=== PATIENT | female | born 1955 | race African-American/Black ===

== ENCOUNTER 2019-08-27 12:21 | Inpatient (IN) | payer MEDICARE, OTHER ==
[~2019-08-27] VITALS: Ht 177.8 cm; Wt 113.9 kg
[~2019-08-27 12:21] MED LIST: LOSA25TA3
[2019-08-27] MEDS ORDERED: FUROSEMIDE 40MG/4ML VIAL IV ONE (13:00)
[2019-08-27] MEDS ORDERED: HYDRALAZINE 20MG/ML VIAL IV ONE (13:00)
[2019-08-27] MEDS ORDERED: ASPIRIN 81MG TABLET PO ONE (13:00)
[2019-08-27] MEDS ORDERED: NITROGLYCERIN OINT 1GM/INCH UDPKT TD ONE (13:00)
[2019-08-27 14:29] LABS: BASOPHILS % 0.4 % (0.0-2.0); EOSINOPHILS % 0.6 % (0.0-5.0); HEMATOCRIT. 35.7 % (36.0-48.0); HEMOGLOBIN. 11.5 g/dL (12.0-16.0); LYMPHOCYTES % 7.8 % (20.0-50.0); MEAN CORPUSCULAR HEMOGLOBIN 26.7 pg (28.0-32.0); MEAN CORPUSCULAR VOLUME 82.9 fL (81.0-99.0); MEAN PLATELET VOLUME 8.1 fl (7.4-10.4); MONOCYTES % 5.2 % (2.0-8.0); PLATELET 210 x1000/uL (130-400); RED CELL DISTRIBUTION WIDTH 14.7 % (11.6-14.6)
[2019-08-27 14:37] LABS: CHLORIDE 105 mEq/L (98-107)
[2019-08-27 14:40] LABS: D-DIMER 0.87 mg/L FEU (<0.50); INR 1.1; PARTIAL THROMBOPLASTIN TIME 33.5 sec (23.4-31.0)
[2019-08-27] MEDS ORDERED: CLONIDINE 0.2MG TABLET PO ONE (15:30)
[2019-08-27] MEDS ORDERED: ENOXAPARIN 100MG/ML SYR SUBCUT ONE (16:15)
[2019-08-27] MEDS ORDERED: ACETAMINOPHEN 325MG TABLET PO PRN (17:15)
[2019-08-27] MEDS ORDERED: HYDROCODONE/ACETAMINOPHEN 10/325MG TABLET PO PRN (17:15)
[2019-08-27] MEDS ORDERED: ACETAMINOPHEN 650MG/20.3ML UDC GT PRN (17:15)
[2019-08-27] MEDS ORDERED: NA PHOS,M-B/NA PHOS,DI-BA ENEMA 118ML PR PRN (17:15)
[2019-08-27] MEDS ORDERED: DIPHENHYDRAMINE 50MG/ML VIAL IV PRN (17:15)
[2019-08-27] MEDS ORDERED: DOCUSATE SODIUM 100MG CAPSULE PO PRN (17:15)
[2019-08-27] MEDS ORDERED: IPRATROPIUM/ALBUTEROL 0.5-3(2.5)MG/3ML NEB HHN PRN (17:15)
[2019-08-27] MEDS ORDERED: HYDROCODONE/ACETAMINOPHEN 5/325MG TABLET PO PRN (17:15)
[2019-08-27] MEDS ORDERED: MAGNESIUM/ALUMINUM HYDROXIDE/SIMETHICONE 30ML UDC PO PRN (17:15)
[2019-08-27] MEDS ORDERED: ACETAMINOPHEN 650MG SUPP PR PRN (17:15)
[2019-08-27] MEDS ORDERED: ENOXAPARIN 40MG/0.4ML SYR SUBCUT SCH (17:15)
[2019-08-27] MEDS ORDERED: GUAIFENESIN 200MG/10ML SUGAR FREE UDC PO PRN (17:15)
[2019-08-27] MEDS ORDERED: ONDANSETRON HCL 4MG/2ML INJ IV PRN (17:15)
[2019-08-27] MEDS ORDERED: IOHEXOL-350 100 ML BOTTLE ONE (17:30)
[2019-08-27] MEDS: CLONIDINE 0.1MG TABLET PO PRN (23:40)
[2019-08-27 23:47] LABS: CREATINE KINASE MB FRACTION 3.2 ng/mL (0.5-3.6)
[2019-08-28] VITALS (7 sets, daily range): BP systolic 132–199; BP diastolic 67–94
[2019-08-28] MEDS: LISINOPRIL 20MG TABLET PO SCH ×2 (00:35→09:31)
[2019-08-28] MEDS: AMLODIPINE 10MG TABLET PO SCH ×2 (00:36→09:31)
[2019-08-28] MEDS: SODIUM CHLORIDE 0.9% INJ 3ML FLUSH IVF SCH ×3 (05:55→21:41)
[2019-08-28 06:23] LABS: BASOPHILS % 0.7 % (0.0-2.0); EOSINOPHILS % 1.7 % (0.0-5.0); HEMATOCRIT. 31.8 % (36.0-48.0); HEMOGLOBIN. 10.2 g/dL (12.0-16.0); LYMPHOCYTES % 16.7 % (20.0-50.0); MEAN CORPUSCULAR HEMOGLOBIN 26.3 pg (28.0-32.0); MEAN CORPUSCULAR VOLUME 81.9 fL (81.0-99.0); MONOCYTES % 10.7 % (2.0-8.0); NEUTROPHILS % 70.2 % (40.0-76.0); PLATELET 206 x1000/uL (130-400); RED BLOOD CELL COUNT 3.89 mill/uL (4.2-5.4)
[2019-08-28 07:17] LABS: CHLORIDE 104 mEq/L (98-107)
[2019-08-28 07:32] LABS: LDL CHOLESTEROL 59 mg/dL (5-100)
[2019-08-28 07:33] LABS: CREATINE KINASE 79 IU/L (26-192); HDL CHOLESTEROL 44 mg/dL (40-59)
[2019-08-28 07:38] LABS: CREATINE KINASE MB FRACTION 2.3 ng/mL (0.5-3.6)
[2019-08-28] MEDS: FUROSEMIDE 40MG/4ML VIAL IV SCH ×2 (09:30→21:41)
[2019-08-28] MEDS: ENOXAPARIN 30MG/0.3ML SYR SUBCUT SCH ×2 (09:30→21:41)
[2019-08-29] VITALS: BP 157/81
[2019-08-29 04:00] VITALS: BP 148/80
[2019-08-29] MEDS: SODIUM CHLORIDE 0.9% INJ 3ML FLUSH IVF SCH (05:44)
[2019-08-29 08:00] VITALS: BP 153/73
[2019-08-29] MEDS: FUROSEMIDE 40MG/4ML VIAL IV SCH (09:06)
[2019-08-29] MEDS: ENOXAPARIN 30MG/0.3ML SYR SUBCUT SCH (09:06)
[2019-08-29] MEDS: LISINOPRIL 20MG TABLET PO SCH (09:06)
[2019-08-29] MEDS: AMLODIPINE 10MG TABLET PO SCH (09:06)
[2019-08-29 12:00] VITALS: BP 164/80
[2019-08-29] MEDS ORDERED: AMLO10TA80 PO (12:18)
[2019-08-29] MEDS ORDERED: FURO-151 MT (12:18)
[2019-08-29] MEDS ORDERED: LISI-604 PO (12:18)
[2019-08-29] MEDS: CLONIDINE 0.1MG TABLET PO PRN (14:38)
[2019-08-29 16:00] VITALS: BP 151/74
[2019-08-29 16:15] VITALS: BP 151/74
== END 2019-08-29 17:37 | disposition home or self-care (01) | DRG 291 ==
LOC: ER 12:21 → 7WST 16:07 → ENRESERV 23:09
PROVIDERS: ADMIT Family Medicine; ATTEND Family Medicine
DX: I11.0 Hypertensive heart disease with heart failure (principal); I50.31 Acute diastolic (congestive) heart failure; I16.1 Hypertensive emergency; R73.9 Hyperglycemia, unspecified; E66.01 Morbid (severe) obesity due to excess calories; I35.0 Nonrheumatic aortic (valve) stenosis; E78.00 Pure hypercholesterolemia, unspecified; E78.5 Hyperlipidemia, unspecified; Z91.19 Patient's noncompliance with other medical treatment and regimen; Z68.36 Body mass index [BMI] 36.0-36.9, adult; Z91.11 Patient's noncompliance with dietary regimen
CPT/HCPCS: 36415; 71045; 71275; 80061; 82550; 82553; 83880; 84484; 85379; 93005; 93306; 93970; 99285; J0360; J1650; J1940; Q9967

== ENCOUNTER 2019-10-25 10:10 | Inpatient (IN) | payer MEDICARE ==
[~2019-10-25] VITALS: Ht 165.1 cm; Wt 116.6 kg
[~2019-10-25 10:10] MED LIST changes: +AMLO10TA80 PO; +FURO-151 MT; +LISI-604 PO
[2019-10-25] MEDS ORDERED: FUROSEMIDE 40MG/4ML VIAL IV ONE (11:30)
[2019-10-25] MEDS ORDERED: NITROGLYCERIN OINT 1GM/INCH UDPKT TD ONE (11:30)
[2019-10-25 12:04] LABS: CHLORIDE 109 mEq/L (98-107)
[2019-10-25 12:06] LABS: BASOPHILS % 0.5 % (0.0-2.0); HEMATOCRIT. 28.8 % (36.0-48.0); HEMOGLOBIN. 9.3 g/dL (12.0-16.0); LYMPHOCYTES % 19.4 % (20.0-50.0); MEAN CORPUSCULAR HEMOGLOBIN 26.2 pg (28.0-32.0); MEAN CORPUSCULAR VOLUME 81.1 fL (81.0-99.0); MEAN PLATELET VOLUME 8.1 fl (7.4-10.4); MONOCYTES % 9.7 % (2.0-8.0); NEUTROPHILS % 68.4 % (40.0-76.0); PLATELET 194 x1000/uL (130-400); RED BLOOD CELL COUNT 3.55 mill/uL (4.2-5.4); RED CELL DISTRIBUTION WIDTH 14.9 % (11.6-14.6)
[2019-10-25 12:36] LABS: D-DIMER 1.59 mg/L FEU (<0.50); INR 1.2; PROTHROMBIN TIME 12.1 sec (9.6-11.0)
[2019-10-25] MEDS ORDERED: LABETALOL 5MG/ML SYR 20 MG/4 ML SYRINGE IV ONE (14:15)
[2019-10-25] MEDS ORDERED: AMIODARONE HCL 900 MG in DEXT 5% WATER 482 ML IV SCH ×4 (15:00)
[2019-10-25 16:00] VITALS: BP 147/94
[2019-10-25 16:05] VITALS: BP 147/94
[2019-10-25] MEDS ORDERED: LISINOPRIL 20MG TABLET PO SCH (18:00)
[2019-10-25 20:00] VITALS: BP 143/76
[2019-10-25] MEDS ORDERED: FUROSEMIDE 40MG/4ML VIAL IVP SCH (21:00)
[2019-10-25] MEDS ORDERED: IOHEXOL-350 100 ML BOTTLE ONE (22:39)
[2019-10-25] MEDS ORDERED: POTASSIUM CHLORIDE 20MEQ TABLET SR PO NR (22:45)
[2019-10-25] MEDS ORDERED: DIPHENHYDRAMINE 50MG/ML VIAL IV PRN (22:45)
[2019-10-25] MEDS ORDERED: ONDANSETRON HCL 4MG/2ML INJ IV PRN (22:45)
[2019-10-25] MEDS ORDERED: GUAIFENESIN 200MG/10ML SUGAR FREE UDC PO PRN (22:45)
[2019-10-25] MEDS ORDERED: MAGNESIUM 4 G PREMIX 100 ML IV NR (23:59)
[2019-10-26] VITALS: BP 144/95
[2019-10-26 00:06] LABS: *AMPHETAMINES SCREEN URINE NEGATIVE (NEGATIVE); *BARBITURATES SCREEN URINE NEGATIVE (NEGATIVE)
[2019-10-26 00:07] LABS: *BENZODIAZEPINES SCREEN URINE NEGATIVE (NEGATIVE); *COCAINE SCREEN URINE NEGATIVE (NEGATIVE); CANNABINOID URINE SCREEN NEGATIVE (NEGATIVE); METHADONE URINE SCREEN NEGATIVE (NEGATIVE); OPIATES URINE SCREEN NEGATIVE (NEGATIVE); PHENCYCLIDINE URINE SCREEN NEGATIVE (NEGATIVE)
[2019-10-26] MEDS ORDERED: PROPRANOLOL HCL 20MG TABLET PO SCH (02:00)
[2019-10-26] MEDS: LISINOPRIL 20MG TABLET PO SCH ×3 (02:14→22:08)
[2019-10-26] MEDS: PROPRANOLOL HCL 10MG TABLET PO SCH ×3 (03:12→18:22)
[2019-10-26 04:00] VITALS: BP 118/70
[2019-10-26] MEDS: SODIUM CHLORIDE 0.9% INJ 3ML FLUSH IVF SCH ×3 (06:34→22:09)
[2019-10-26 07:16] LABS: BASOPHILS % 0.5 % (0.0-2.0); EOSINOPHILS % 2.9 % (0.0-5.0); HEMATOCRIT. 27.9 % (36.0-48.0); HEMOGLOBIN. 9.1 g/dL (12.0-16.0); LYMPHOCYTES % 20.1 % (20.0-50.0); MEAN CORPUSCULAR HEMOGLOBIN 26.2 pg (28.0-32.0); MEAN CORPUSCULAR VOLUME 80.4 fL (81.0-99.0); MEAN PLATELET VOLUME 8.2 fl (7.4-10.4); MONOCYTES % 14.4 % (2.0-8.0); NEUTROPHILS % 62.1 % (40.0-76.0); PLATELET 192 x1000/uL (130-400); RED BLOOD CELL COUNT 3.47 mill/uL (4.2-5.4); RED CELL DISTRIBUTION WIDTH 15.4 % (11.6-14.6)
[2019-10-26 07:55] VITALS: BP 129/91
[2019-10-26 08:13] LABS: CHLORIDE 105 mEq/L (98-107)
[2019-10-26] MEDS: FAMOTIDINE 20MG TABLET PO SCH ×2 (08:16→21:42)
[2019-10-26] MEDS: ACETAMINOPHEN 325MG TABLET PO PRN ×2 (08:16→21:42)
[2019-10-26 08:42] LABS: PHOSPHORUS 4.7 mg/dL (2.5-4.9)
[2019-10-26] MEDS ORDERED: METHIMAZOLE 5MG TABLET PO SCH (09:00)
[2019-10-26] MEDS ORDERED: AMLODIPINE 10MG TABLET PO SCH (09:00)
[2019-10-26 12:00] VITALS: BP 113/81
[2019-10-26] MEDS: ENOXAPARIN 120MG/0.8ML SYR SUBCUT SCH ×2 (14:20→22:08)
[2019-10-26 16:00] VITALS: BP 105/78
[2019-10-26 17:03] LABS: CREATINE KINASE 34 IU/L (26-192)
[2019-10-26 17:07] LABS: T4 FREE 1.93 ng/dL (0.76-1.46)
[2019-10-26 17:08] LABS: CREATINE KINASE MB FRACTION < 1.0 ng/mL (0.5-3.6)
[2019-10-26] MEDS: METHIMAZOLE 10MG TABLET PO SCH (18:07)
[2019-10-26 20:00] VITALS: BP 116/80
[2019-10-26 23:45] LABS: CREATINE KINASE 33 IU/L (26-192)
[2019-10-26 23:47] LABS: CREATINE KINASE MB FRACTION < 1.0 ng/mL (0.5-3.6)
[2019-10-27] VITALS: BP 127/89
[2019-10-27] MEDS: PROPRANOLOL HCL 10MG TABLET PO SCH ×3 (02:48→17:31)
[2019-10-27 04:00] VITALS: BP 128/79
[2019-10-27 08:00] VITALS: BP 120/81
[2019-10-27 09:48] LABS: CREATINE KINASE 29 IU/L (26-192)
[2019-10-27 09:49] LABS: CREATINE KINASE MB FRACTION < 1.0 ng/mL (0.5-3.6)
[2019-10-27] MEDS: LISINOPRIL 20MG TABLET PO SCH ×2 (09:57→21:15)
[2019-10-27] MEDS: FAMOTIDINE 20MG TABLET PO SCH ×2 (09:57→21:15)
[2019-10-27] MEDS: METHIMAZOLE 10MG TABLET PO SCH ×2 (09:57→17:32)
[2019-10-27] MEDS: ENOXAPARIN 120MG/0.8ML SYR SUBCUT SCH ×2 (10:01→21:16)
[2019-10-27 12:00] VITALS: BP 125/77
[2019-10-27 16:16] VITALS: BP 133/65
[2019-10-27 20:00] VITALS: BP 115/66
[2019-10-27] MEDS: SODIUM CHLORIDE 0.9% INJ 3ML FLUSH IVF SCH (21:16)
[2019-10-28] VITALS: BP 117/76
[2019-10-28] MEDS: PROPRANOLOL HCL 10MG TABLET PO SCH ×2 (00:15→09:30)
[2019-10-28 04:00] VITALS: BP 104/82
[2019-10-28] MEDS: SODIUM CHLORIDE 0.9% INJ 3ML FLUSH IVF SCH (05:51)
[2019-10-28 08:00] VITALS: BP 124/82
[2019-10-28] MEDS: ENOXAPARIN 120MG/0.8ML SYR SUBCUT SCH (09:29)
[2019-10-28] MEDS: LISINOPRIL 20MG TABLET PO SCH (09:30)
[2019-10-28] MEDS: FAMOTIDINE 20MG TABLET PO SCH (09:30)
[2019-10-28] MEDS: METHIMAZOLE 10MG TABLET PO SCH (09:30)
[2019-10-28 12:06] VITALS: BP 117/69
[2019-10-28 12:20] VITALS: BP 117/69
== END 2019-10-28 13:05 | disposition home or self-care (01) | DRG 308 ==
LOC: ER 10:10 → 7WST 13:01 → EDBEDREQ 13:06 → ENRESERV 13:30
PROVIDERS: ADMIT Internal Medicine; ATTEND Internal Medicine
DX: I47.1 Supraventricular tachycardia (principal); I50.33 Acute on chronic diastolic (congestive) heart failure; Z68.41 Body mass index [BMI] 40.0-44.9, adult; I42.9 Cardiomyopathy, unspecified; I11.0 Hypertensive heart disease with heart failure; I48.91 Unspecified atrial fibrillation; E66.01 Morbid (severe) obesity due to excess calories; E78.5 Hyperlipidemia, unspecified; E87.6 Hypokalemia; E05.90 Thyrotoxicosis, unspecified without thyrotoxic crisis or storm; D64.9 Anemia, unspecified; I07.1 Rheumatic tricuspid insufficiency; Z79.01 Long term (current) use of anticoagulants; Z79.899 Other long term (current) drug therapy; Z85.41 Personal history of malignant neoplasm of cervix uteri; Z82.49 Family history of ischemic heart disease and other diseases of the circulatory system; Z83.3 Family history of diabetes mellitus; Z90.49 Acquired absence of other specified parts of digestive tract
CPT/HCPCS: 36415; 71045; 71275; 80048; 80053; 80061; 80305; 82550; 82553; 83036; 83605; 83735; 83880; 84100; 84439; 84443; 84481; 84484; 85025; 85379; 93005; 93306; 93970; 96365; 96372; 96375; 96376; 99291; J0282; J1650; J1940; J3475; J3490; J7060; Q9967

== ENCOUNTER 2019-11-16 09:33 | Inpatient (IN) | payer MEDICARE ==
[~2019-11-16] VITALS: Ht 165.1 cm; Wt 112.0 kg
[~2019-11-16 09:33] MED LIST changes: -LOSA25TA3
[2019-11-16] MEDS ORDERED: NITROGLYCERIN 0.4MG TABLET SL SL PRN (10:15)
[2019-11-16] MEDS ORDERED: FUROSEMIDE 40MG/4ML VIAL IV ONE (10:15)
[2019-11-16] MEDS ORDERED: DILTIAZEM HCL 5MG/ML 5ML VIAL IV ONE (10:15)
[2019-11-16] MEDS ORDERED: ASPIRIN 81MG TABLET PO ONE (10:15)
[2019-11-16 10:40] LABS: BASOPHILS % 0.8 % (0.0-2.0); EOSINOPHILS % 2.5 % (0.0-5.0); HEMATOCRIT. 30.3 % (36.0-48.0); HEMOGLOBIN. 10.4 g/dL (12.0-16.0); LYMPHOCYTES % 20.9 % (20.0-50.0); MEAN CORPUSCULAR HEMOGLOBIN 27.8 pg (28.0-32.0); MEAN CORPUSCULAR VOLUME 81.1 fL (81.0-99.0); MEAN PLATELET VOLUME 7.9 fl (7.4-10.4); MONOCYTES % 7.6 % (2.0-8.0); NEUTROPHILS % 68.2 % (40.0-76.0); PLATELET 240 x1000/uL (130-400); RED BLOOD CELL COUNT 3.74 mill/uL (4.2-5.4); RED CELL DISTRIBUTION WIDTH 17.1 % (11.6-14.6)
[2019-11-16 10:44] LABS: CHLORIDE 107 mEq/L (98-107)
[2019-11-16] MEDS ORDERED: ENOXAPARIN 120MG/0.8ML SYR SUBCUT ONE (12:00)
[2019-11-16] MEDS ORDERED: DILTIAZEM HCL 120MG CAPSULE CD 24HR PO ONE (12:00)
[2019-11-16] MEDS ORDERED: DIPHENHYDRAMINE 50MG/ML VIAL IV PRN (14:00)
[2019-11-16] MEDS ORDERED: GUAIFENESIN 200MG/10ML SUGAR FREE UDC PO PRN (14:00)
[2019-11-16] MEDS ORDERED: MAGNESIUM/ALUMINUM HYDROXIDE/SIMETHICONE 30ML UDC PO PRN (14:00)
[2019-11-16] MEDS ORDERED: ZOLPIDEM TARTRATE 5MG TABLET PO PRN (14:00)
[2019-11-16] MEDS ORDERED: ACETAMINOPHEN 325MG TABLET PO PRN (14:00)
[2019-11-16] MEDS ORDERED: FUROSEMIDE 40MG/4ML VIAL IVP SCH (14:00)
[2019-11-16] MEDS ORDERED: CLONIDINE 0.1MG TABLET PO PRN (14:00)
[2019-11-16] MEDS ORDERED: ONDANSETRON HCL 4MG/2ML INJ IV PRN (14:00)
[2019-11-16] MEDS: SODIUM CHLORIDE 0.9% INJ 3ML FLUSH IVF SCH (14:18)
[2019-11-16 15:04] LABS: T4 FREE 1.11 ng/dL (0.76-1.46)
[2019-11-16] MEDS ORDERED: APIXABAN 5 MG TABLET PO SCH (17:00)
[2019-11-16] MEDS ORDERED: METHIMAZOLE 5MG TABLET PO NR (18:15)
[2019-11-16] MEDS ORDERED: METHIMAZOLE 10MG TABLET PO NR (18:15)
[2019-11-16] MEDS ORDERED: LISINOPRIL 20MG TABLET PO NR (22:56)
[2019-11-16] MEDS ORDERED: METOPROLOL TARTRATE 50MG TABLET PO NR (22:57)
[2019-11-17] MEDS: SODIUM CHLORIDE 0.9% INJ 3ML FLUSH IVF SCH ×4 (00:21→20:56)
[2019-11-17 04:53] LABS: HEMATOCRIT 29.2 % (36.0-48.0); HEMOGLOBIN 9.5 g/dL (12.0-16.0); MEAN CORPUSCULAR HEMOGLOBIN 26.6 pg (28.0-32.0); MEAN CORPUSCULAR VOLUME 81.5 fL (81.0-99.0); PLATELET 180 x1000/uL (130-400); RED BLOOD CELL COUNT 3.58 mill/uL (4.2-5.4); RED CELL DISTRIBUTION WIDTH 17.1 % (11.6-14.6)
[2019-11-17 04:55] LABS: CHLORIDE 107 mEq/L (98-107)
[2019-11-17 05:40] VITALS: BP 125/83
[2019-11-17 05:42] VITALS: BP 125/83
[2019-11-17] MEDS ORDERED: POTA20LI52 PO (07:33)
[2019-11-17] MEDS ORDERED: PROP40TA7 PO (07:35)
[2019-11-17] MEDS ORDERED: METH5TAB68 PO (07:35)
[2019-11-17 08:00] VITALS: BP 145/90
[2019-11-17] MEDS ORDERED: APIXABAN 5 MG TABLET PO SCH (09:00)
[2019-11-17] MEDS ORDERED: LISINOPRIL 20MG TABLET PO SCH (09:00)
[2019-11-17] MEDS ORDERED: METOPROLOL TARTRATE 50MG TABLET PO SCH (09:00)
[2019-11-17] MEDS: FUROSEMIDE 40MG/4ML VIAL IVP SCH ×2 (09:13→20:55)
[2019-11-17] MEDS: METHIMAZOLE 5MG TABLET PO SCH ×2 (09:14→17:00)
[2019-11-17] MEDS ORDERED: DILTIAZEM HCL 60MG TABLET PO SCH (10:00)
[2019-11-17 12:00] VITALS: BP 120/82
[2019-11-17] MEDS: POTASSIUM CHLORIDE 20MEQ TABLET SR PO SCH ×2 (14:01→20:55)
[2019-11-17] MEDS: CARVEDILOL 3.125 MG TABLET PO SCH ×2 (14:01→20:56)
[2019-11-17 16:00] VITALS: BP 102/73
[2019-11-17] MEDS: DILTIAZEM HCL 30MG TABLET PO SCH (17:05)
[2019-11-17 20:00] VITALS: BP 117/77
[2019-11-18] VITALS: BP_SYST 104; BP_SYST 133; BP_DIAS 63; BP_DIAS 81
[2019-11-18] MEDS: DILTIAZEM HCL 30MG TABLET PO SCH ×3 (02:00→18:21)
[2019-11-18 04:00] VITALS: BP 125/65
[2019-11-18] MEDS: SODIUM CHLORIDE 0.9% INJ 3ML FLUSH IVF SCH ×3 (06:08→23:07)
[2019-11-18] MEDS: CARVEDILOL 3.125 MG TABLET PO SCH ×3 (06:09→23:06)
[2019-11-18 07:46] LABS: BASOPHILS % 0.5 % (0.0-2.0); EOSINOPHILS % 5.2 % (0.0-5.0); HEMATOCRIT. 30.3 % (36.0-48.0); HEMOGLOBIN. 9.8 g/dL (12.0-16.0); LYMPHOCYTES % 23.2 % (20.0-50.0); MEAN CORPUSCULAR HEMOGLOBIN 26.3 pg (28.0-32.0); MEAN CORPUSCULAR VOLUME 81.3 fL (81.0-99.0); MEAN PLATELET VOLUME 8.1 fl (7.4-10.4); MONOCYTES % 12.1 % (2.0-8.0); PLATELET 174 x1000/uL (130-400); RED BLOOD CELL COUNT 3.73 mill/uL (4.2-5.4); RED CELL DISTRIBUTION WIDTH 17.1 % (11.6-14.6)
[2019-11-18 08:00] VITALS: BP 142/85
[2019-11-18 08:01] LABS: INR 1.1; PROTHROMBIN TIME 12.1 sec (9.6-11.0)
[2019-11-18 08:18] LABS: CHLORIDE 105 mEq/L (98-107)
[2019-11-18 08:27] LABS: TOTAL IRON BINDING CAPACITY 339 ug/dL (250-450)
[2019-11-18 08:39] LABS: VITAMIN B12 SERUM 507 pg/mL (211-911)
[2019-11-18] MEDS: FUROSEMIDE 40MG/4ML VIAL IVP SCH ×2 (10:09→21:04)
[2019-11-18] MEDS: POTASSIUM CHLORIDE 20MEQ TABLET SR PO SCH ×2 (11:22→18:20)
[2019-11-18] MEDS: METHIMAZOLE 5MG TABLET PO SCH ×2 (11:24→18:21)
[2019-11-18] MEDS: ENOXAPARIN 120MG/0.8ML SYR SUBCUT SCH ×2 (11:24→21:05)
[2019-11-18 12:00] VITALS: BP 119/87
[2019-11-18 16:00] VITALS: BP 118/80
[2019-11-18] MEDS: FERROUS SULFATE 325MG TABLET PO SCH (18:21)
[2019-11-18 20:00] VITALS: BP 112/76
[2019-11-19] VITALS: BP 107/62
[2019-11-19] MEDS: DILTIAZEM HCL 30MG TABLET PO SCH ×3 (03:15→17:53)
[2019-11-19 04:00] VITALS: BP 100/59
[2019-11-19] MEDS: CARVEDILOL 3.125 MG TABLET PO SCH ×3 (05:36→21:40)
[2019-11-19] MEDS: SODIUM CHLORIDE 0.9% INJ 3ML FLUSH IVF SCH ×3 (06:00→21:40)
[2019-11-19 06:14] LABS: BASOPHILS % 0.6 % (0.0-2.0); EOSINOPHILS % 6.3 % (0.0-5.0); HEMATOCRIT. 28.5 % (36.0-48.0); HEMOGLOBIN. 9.4 g/dL (12.0-16.0); MEAN CORPUSCULAR HEMOGLOBIN 26.5 pg (28.0-32.0); MEAN CORPUSCULAR VOLUME 80.7 fL (81.0-99.0); MEAN PLATELET VOLUME 8.1 fl (7.4-10.4); MONOCYTES % 11.2 % (2.0-8.0); NEUTROPHILS % 51.9 % (40.0-76.0); PLATELET 162 x1000/uL (130-400); RED BLOOD CELL COUNT 3.53 mill/uL (4.2-5.4); RED CELL DISTRIBUTION WIDTH 17.2 % (11.6-14.6)
[2019-11-19 06:48] LABS: CHLORIDE 104 mEq/L (98-107)
[2019-11-19 07:56] VITALS: BP 114/83
[2019-11-19] MEDS: POTASSIUM CHLORIDE 20MEQ TABLET SR PO SCH ×2 (08:33→17:53)
[2019-11-19] MEDS: METHIMAZOLE 5MG TABLET PO SCH ×2 (08:33→17:53)
[2019-11-19] MEDS: ENOXAPARIN 120MG/0.8ML SYR SUBCUT SCH ×2 (08:34→21:40)
[2019-11-19] MEDS: FUROSEMIDE 40MG/4ML VIAL IVP SCH ×2 (08:38→21:40)
[2019-11-19] MEDS: FERROUS SULFATE 325MG TABLET PO SCH ×3 (08:39→17:53)
[2019-11-19 11:55] VITALS: BP 133/66
[2019-11-19] MEDS ORDERED: METOLAZONE 10MG TABLET PO NR (15:00)
[2019-11-19 16:31] VITALS: BP 114/90
[2019-11-19 18:54] LABS: CLARITY URINE CLEAR (CLEAR); COLOR URINE YELLOW (YELLOW); KETONES URINE NEGATIVE (NEGATIVE); LEUKOCYTE ESTERASE URINE TRACE (NEGATIVE); NITRITE URINE NEGATIVE (NEGATIVE); OCCULT BLOOD URINE NEGATIVE (NEGATIVE); PROTEIN URINE TRACE (NEGATIVE); SPECIFIC GRAVITY URINE 1.016 (1.005-1.030)
[2019-11-19 20:34] VITALS: BP 147/90
[2019-11-20 00:13] VITALS: BP 124/83
[2019-11-20] MEDS: DILTIAZEM HCL 30MG TABLET PO SCH ×3 (02:30→18:17)
[2019-11-20 04:50] VITALS: BP 128/82
[2019-11-20] MEDS: SODIUM CHLORIDE 0.9% INJ 3ML FLUSH IVF SCH ×3 (05:01→21:12)
[2019-11-20] MEDS: CARVEDILOL 3.125 MG TABLET PO SCH (05:01)
[2019-11-20 05:54] LABS: BASOPHILS % 0.8 % (0.0-2.0); EOSINOPHILS % 6.2 % (0.0-5.0); HEMATOCRIT. 29.6 % (36.0-48.0); HEMOGLOBIN. 9.7 g/dL (12.0-16.0); LYMPHOCYTES % 30.1 % (20.0-50.0); MEAN CORPUSCULAR HEMOGLOBIN 26.4 pg (28.0-32.0); MEAN CORPUSCULAR VOLUME 80.4 fL (81.0-99.0); MEAN PLATELET VOLUME 8.1 fl (7.4-10.4); MONOCYTES % 10.1 % (2.0-8.0); NEUTROPHILS % 52.8 % (40.0-76.0); PLATELET 174 x1000/uL (130-400); RED BLOOD CELL COUNT 3.69 mill/uL (4.2-5.4); RED CELL DISTRIBUTION WIDTH 17.6 % (11.6-14.6)
[2019-11-20 06:56] LABS: CHLORIDE 100 mEq/L (98-107)
[2019-11-20 08:00] VITALS: BP 120/72
[2019-11-20] MEDS: FERROUS SULFATE 325MG TABLET PO SCH ×3 (08:48→18:16)
[2019-11-20] MEDS: METHIMAZOLE 5MG TABLET PO SCH ×2 (08:48→18:16)
[2019-11-20] MEDS: POTASSIUM CHLORIDE 20MEQ TABLET SR PO SCH ×2 (08:48→18:16)
[2019-11-20] MEDS: ENOXAPARIN 120MG/0.8ML SYR SUBCUT SCH ×2 (08:48→20:36)
[2019-11-20] MEDS: FUROSEMIDE 40MG/4ML VIAL IVP SCH ×2 (08:51→20:35)
[2019-11-20] MEDS ORDERED: METOLAZONE 10MG TABLET PO NR (14:30)
[2019-11-20 16:00] VITALS: BP 127/82
[2019-11-20 20:05] VITALS: BP 120/60
[2019-11-20] MEDS: CARVEDILOL 6.25 MG TABLET PO SCH (20:36)
[2019-11-20 23:51] VITALS: BP 113/70
[2019-11-21] VITALS (9 sets, daily range): BP systolic 89–125; BP diastolic 54–79
[2019-11-21] MEDS: DILTIAZEM HCL 30MG TABLET PO SCH ×4 (01:40→18:21)
[2019-11-21] MEDS: SODIUM CHLORIDE 0.9% INJ 3ML FLUSH IVF SCH ×2 (05:27→14:07)
[2019-11-21] MEDS: FERROUS SULFATE 325MG TABLET PO SCH ×4 (07:50→16:57)
[2019-11-21] MEDS ORDERED: SODIUM CHLORIDE 0.45% 1,000 ML IV SCH (08:00)
[2019-11-21] MEDS: CARVEDILOL 6.25 MG TABLET PO SCH ×4 (09:00→16:57)
[2019-11-21] MEDS: METHIMAZOLE 5MG TABLET PO SCH ×3 (09:00→16:57)
[2019-11-21] MEDS: POTASSIUM CHLORIDE 20MEQ TABLET SR PO SCH ×3 (09:00→16:57)
[2019-11-21] MEDS: FUROSEMIDE 40MG/4ML VIAL IVP SCH (09:41)
[2019-11-21] MEDS ORDERED: ASPIRIN/SOD BICARB/CITRIC ACID 324MG TAB EFF ONE (12:48)
[2019-11-21] MEDS ORDERED: LIDOCAINE HCL 1% 20ML VIAL (Pyxis) INJ ONE (12:49)
[2019-11-21] MEDS ORDERED: IODIXANOL 320MG/ML 100 ML BOTTLE IV ONE (12:49)
[2019-11-21] MEDS ORDERED: MIDAZOLAM HCL 2 MG/2 ML VIAL ONE (12:49)
[2019-11-21] MEDS ORDERED: FENTANYL CITRATE/PF 50MCG/ML 2ML VIAL ONE (12:49)
[2019-11-21] MEDS ORDERED: MORPHINE SULFATE 2 MG/ML CPJ (NOT FOR IM USE) IV PRN ×2 (13:45)
[2019-11-21] MEDS ORDERED: ACETAMINOPHEN 325MG TABLET PO PRN (13:45)
[2019-11-21] MEDS ORDERED: SODIUM CHLORIDE 0.45% 1,000 ML IV ONE (13:45)
[2019-11-21] MEDS ORDERED: ONDANSETRON HCL 4MG/2ML INJ IV PRN (13:45)
[2019-11-21] MEDS ORDERED: ATROPINE SULFATE 1MG/10ML SYR IV PRN (13:45)
[2019-11-21] MEDS: APIXABAN 5 MG TABLET PO SCH (18:21)
[2019-11-22] VITALS: BP 118/60
[2019-11-22] MEDS: SODIUM CHLORIDE 0.9% INJ 3ML FLUSH IVF SCH ×2 (01:20→05:09)
[2019-11-22] MEDS: DILTIAZEM HCL 30MG TABLET PO SCH ×2 (01:39→09:20)
[2019-11-22 04:00] VITALS: BP 131/66
[2019-11-22 07:54] LABS: BASOPHILS % 0.4 % (0.0-2.0); EOSINOPHILS % 5.9 % (0.0-5.0); HEMATOCRIT. 32.4 % (36.0-48.0); HEMOGLOBIN. 10.8 g/dL (12.0-16.0); LYMPHOCYTES % 31.9 % (20.0-50.0); MEAN CORPUSCULAR HEMOGLOBIN 26.8 pg (28.0-32.0); MEAN CORPUSCULAR VOLUME 80.4 fL (81.0-99.0); MONOCYTES % 13.4 % (2.0-8.0); NEUTROPHILS % 48.4 % (40.0-76.0); PLATELET 183 x1000/uL (130-400); RED BLOOD CELL COUNT 4.04 mill/uL (4.2-5.4); RED CELL DISTRIBUTION WIDTH 17.6 % (11.6-14.6)
[2019-11-22 08:00] VITALS: BP 122/77
[2019-11-22] MEDS: FERROUS SULFATE 325MG TABLET PO SCH ×2 (09:19→12:48)
[2019-11-22] MEDS: FUROSEMIDE 40MG TABLET PO SCH ×2 (09:19→09:40)
[2019-11-22] MEDS: CARVEDILOL 6.25 MG TABLET PO SCH ×2 (09:20→12:45)
[2019-11-22] MEDS: APIXABAN 5 MG TABLET PO SCH (09:20)
[2019-11-22] MEDS: POTASSIUM CHLORIDE 20MEQ TABLET SR PO SCH (09:20)
[2019-11-22] MEDS: METHIMAZOLE 5MG TABLET PO SCH (09:20)
[2019-11-22 10:29] LABS: CHLORIDE 94 mEq/L (98-107)
[2019-11-22 12:00] VITALS: BP 103/69
[2019-11-22] MEDS ORDERED: POTASSIUM CHLORIDE 20MEQ TABLET SR PO NR (12:00)
[2019-11-22 13:44] VITALS: BP 103/69
== END 2019-11-22 14:55 | disposition home or self-care (01) | DRG 286 ==
LOC: ER 09:33 → EDBEDREQTM 12:06 → EDBEDREQSVC 12:06 → EDBEDREQ 12:06 → EDBEDREQSVC 21:06 → ENRESERV 11-17 04:04 → 6WST 11-17 05:11
PROVIDERS: ADMIT Internal Medicine; ATTEND Internal Medicine
PROC: 4A023N7 Measurement of Cardiac Sampling and Pressure, Left Heart, Percutaneous Approach (ICD-10-PCS; principal; 2019-11-21)
PROC: B2111ZZ Fluoroscopy of Multiple Coronary Arteries using Low Osmolar Contrast (ICD-10-PCS; 2019-11-21)
PROC: B2151ZZ Fluoroscopy of Left Heart using Low Osmolar Contrast (ICD-10-PCS; 2019-11-21)
DX: I48.91 Unspecified atrial fibrillation (principal); I50.43 Acute on chronic combined systolic (congestive) and diastolic (congestive) heart failure; Z68.41 Body mass index [BMI] 40.0-44.9, adult; I11.0 Hypertensive heart disease with heart failure; E03.9 Hypothyroidism, unspecified; E05.90 Thyrotoxicosis, unspecified without thyrotoxic crisis or storm; E66.9 Obesity, unspecified; I25.10 Atherosclerotic heart disease of native coronary artery without angina pectoris; I42.9 Cardiomyopathy, unspecified; E78.5 Hyperlipidemia, unspecified; I36.1 Nonrheumatic tricuspid (valve) insufficiency; Z82.49 Family history of ischemic heart disease and other diseases of the circulatory system; Z79.01 Long term (current) use of anticoagulants; Z83.3 Family history of diabetes mellitus; Z79.899 Other long term (current) drug therapy; Z90.49 Acquired absence of other specified parts of digestive tract; Z91.14 Patient's other noncompliance with medication regimen
CPT/HCPCS: 36415; 71045; 76536; 80048; 80053; 81003; 82270; 82607; 83520; 83540; 83550; 83735; 83880; 84439; 84443; 84481; 84484; 85025; 85027; 85044; 86376; 93005; 93458; 93970; 99291; C1769; C1893; J1644; J1650; J1940; J2250; J2270; J3010; J3490; Q9967

== ENCOUNTER 2024-08-10 17:17 | Inpatient (IN) | payer MEDICARE ==
[~2024-08-10] VITALS: Ht 162.6 cm; Wt 111.6 kg
[~2024-08-10 17:17] MED LIST changes: +ALBU6.7H15 INH; -AMLO10TA80 PO; +CARV12.545 PO; -FURO-151 MT; +FURO80TA3 PO; -LISI-604 PO; +LOSA50TA41 PO; +METO10TA16 PO; +POTA-354 PO
[2024-08-10 19:05] LABS: BASOPHILS % 0.7 % (0.0-2.0); HEMATOCRIT. 29.7 % (36.0-48.0); HEMOGLOBIN. 9.6 g/dL (12.0-16.0); LYMPHOCYTES % 23.1 % (20.0-50.0); MEAN CORPUSCULAR HEMOGLOBIN 27.6 pg (28.0-32.0); MEAN CORPUSCULAR HGB CONC 32.4 g/dL (31.0-37.0); MEAN CORPUSCULAR VOLUME 85.4 fL (81.0-99.0); MEAN PLATELET VOLUME 7.5 fl (7.4-10.4); MONOCYTES % 10.2 % (2.0-8.0); PLATELET 173 x1000/uL (130-400); RED BLOOD CELL COUNT 3.48 mill/uL (4.2-5.4); RED CELL DISTRIBUTION WIDTH 16.4 % (11.6-14.6); WHITE BLOOD COUNT 4.6 x1000/uL (4.5-11.0)
[2024-08-10 19:13] LABS: CHLORIDE 106 mEq/L (98-107); POTASSIUM 3.6 mEq/L (3.5-5.1); SODIUM 140 mEq/L (136-145)
[2024-08-10 19:14] LABS: CALCIUM 9.2 mg/dL (8.7-10.4); CARBON DIOXIDE 27 mEq/L (21-32)
[2024-08-10 19:19] LABS: CREATININE 1.1 mg/dL (0.6-1.0); GLUCOSE 93 mg/dL (70-105); UREA NITROGEN BLOOD 24 mg/dL (9-23)
[2024-08-10 19:26] LABS: TROPONIN I HIGH SENSITIVITY 448 ng/L (3.0-34)
[2024-08-10] MEDS: CLOPIDOGREL 75MG TABLET PO ONE (21:03)
[2024-08-10] MEDS: ASPIRIN 325MG EC TABLET PO ONE (21:25)
[2024-08-10] MEDS: FUROSEMIDE 40MG/4ML VIAL IVP ONE (21:25)
[2024-08-11] MEDS ORDERED: APIX5TAB PO (00:28)
[2024-08-11] MEDS ORDERED: PHEN-910 PO (00:28)
[2024-08-11 00:38] VITALS: BP 134/56; PULSE 82; RESP 19; TEMP 36.6404
[2024-08-11] MEDS ORDERED: TRAMADOL 50MG TABLET PO PRN (01:00)
[2024-08-11 06:38] LABS: CLARITY URINE CLEAR (CLEAR); COLOR URINE YELLOW (YELLOW); GLUCOSE URINE NEGATIVE (NEGATIVE); KETONES URINE NEGATIVE (NEGATIVE); LEUKOCYTE ESTERASE URINE NEGATIVE (NEGATIVE); NITRITE URINE NEGATIVE (NEGATIVE); OCCULT BLOOD URINE NEGATIVE (NEGATIVE); PH URINE 5.5 (4.5-8.0); PROTEIN URINE NEGATIVE (NEGATIVE); SPECIFIC GRAVITY URINE 1.007 (1.005-1.030); UROBILINOGEN URINE 0.2 E.U./dL (0.2-1.0)
[2024-08-11 08:00] VITALS: BP 118/64; PULSE 91; RESP 20; TEMP 36.33624; O2SAT 98
[2024-08-11] MEDS: FUROSEMIDE 40MG/4ML VIAL IVP SCH ×2 (09:06→20:29)
[2024-08-11] MEDS: POTASSIUM CHLORIDE 20MEQ TABLET SR PO SCH (09:21)
[2024-08-11] MEDS: METOLAZONE 2.5MG TABLET PO SCH (09:21)
[2024-08-11] MEDS: APIXABAN 5 MG TABLET PO SCH (09:22)
[2024-08-11] MEDS: LOSARTAN 25 MG TABLET PO SCH (09:22)
[2024-08-11] MEDS ORDERED: ONDANSETRON HCL 4MG/2ML INJ IV PRN (09:30)
[2024-08-11] MEDS ORDERED: MAGNESIUM/ALUMINUM HYDROXIDE/SIMETHICONE 30ML UDC PO PRN (09:30)
[2024-08-11] MEDS ORDERED: ACETAMINOPHEN 325MG TABLET PO PRN (09:30)
[2024-08-11] MEDS ORDERED: CLONIDINE 0.1MG TABLET PO PRN (09:30)
[2024-08-11] MEDS ORDERED: GUAIFENESIN 200MG/10ML SUGAR FREE UDC PO PRN (09:30)
[2024-08-11 12:00] VITALS: BP 132/52; PULSE 75; RESP 20; TEMP 36.50292; O2SAT 98
[2024-08-11] MEDS: SODIUM CHLORIDE 0.9% 3ML FLUSH IVF SCH (14:00)
[2024-08-11 16:00] VITALS: BP 128/58; PULSE 79; RESP 20; TEMP 36.22512; O2SAT 98
[2024-08-11 20:00] VITALS: BP 120/51; PULSE 78; RESP 18; TEMP 36.55848; O2SAT 98
[2024-08-11] MEDS ORDERED: FURO40TA5 MT (20:06)
[2024-08-11] MEDS: POTASSIUM CHLORIDE 20MEQ/PACKET PO SCH (21:31)
[2024-08-11] MEDS: DICLOFENAC SODIUM 75MG DR TABLET PO SCH (21:42)
[2024-08-12] VITALS: BP 117/66; PULSE 83; RESP 18; TEMP 36.28068; O2SAT 98
[2024-08-12] MEDS: ACETAMINOPHEN 325MG TABLET PO PRN (00:25)
[2024-08-12] MEDS: ZOLPIDEM TARTRATE 5MG TABLET PO PRN (00:25)
[2024-08-12 04:00] VITALS: BP 115/53; PULSE 79; RESP 18; TEMP 36.61404; O2SAT 100
[2024-08-12 06:46] LABS: CHLORIDE 103 mEq/L (98-107); POTASSIUM 3.6 mEq/L (3.5-5.1); SODIUM 141 mEq/L (136-145)
[2024-08-12 06:47] LABS: CALCIUM 9.4 mg/dL (8.7-10.4); CARBON DIOXIDE 31 mEq/L (21-32)
[2024-08-12 06:52] LABS: CREATININE 1.3 mg/dL (0.6-1.0); GLUCOSE 87 mg/dL (70-105); UREA NITROGEN BLOOD 28 mg/dL (9-23)
[2024-08-12 08:00] VITALS: BP 109/53; PULSE 87; RESP 18; TEMP 36.33624; O2SAT 95
[2024-08-12] MEDS: LOSARTAN 25 MG TABLET PO SCH (09:00)
[2024-08-12] MEDS: MAGNESIUM OXIDE 400MG TABLET PO SCH (09:49)
[2024-08-12] MEDS: POTASSIUM CHLORIDE 20MEQ TABLET SR PO SCH (09:50)
[2024-08-12] MEDS: MAGNESIUM 4 G PREMIX 100 ML IV NR (11:00)
[2024-08-12] MEDS: MAGNESIUM 2 G PREMIX 50 ML IV SCH (11:06)
[2024-08-12 12:00] VITALS: BP 112/63; RESP 18; TEMP 36.55848; O2SAT 99
[2024-08-12 16:00] VITALS: BP 115/58; RESP 20; TEMP 36.44736; O2SAT 99
[2024-08-12 20:00] VITALS: BP 155/55; PULSE 75; RESP 19; TEMP 36.50292; O2SAT 98
[2024-08-12] MEDS ORDERED: IBUPROFEN 600MG TABLET PO PRN (21:30)
[2024-08-13] VITALS: BP 106/47; PULSE 79; RESP 19; TEMP 36.72516; O2SAT 97
[2024-08-13 04:00] VITALS: BP 102/48; PULSE 79; RESP 20; TEMP 36.50292; O2SAT 95
[2024-08-13 05:41] LABS: POTASSIUM 3.9 mEq/L (3.5-5.1)
[2024-08-13 05:43] LABS: CALCIUM 9.4 mg/dL (8.7-10.4)
[2024-08-13 05:44] LABS: BASOPHILS % 0.5 % (0.0-2.0); EOSINOPHILS % 7.6 % (0.0-5.0); HEMATOCRIT. 31.8 % (36.0-48.0); HEMOGLOBIN. 10.2 g/dL (12.0-16.0); LYMPHOCYTES % 26.2 % (20.0-50.0); MEAN CORPUSCULAR HEMOGLOBIN 27.3 pg (28.0-32.0); MEAN CORPUSCULAR VOLUME 85.3 fL (81.0-99.0); MEAN PLATELET VOLUME 7.9 fl (7.4-10.4); MONOCYTES % 11.5 % (2.0-8.0); NEUTROPHILS % 54.2 % (40.0-76.0); PLATELET 170 x1000/uL (130-400); RED BLOOD CELL COUNT 3.73 mill/uL (4.2-5.4); RED CELL DISTRIBUTION WIDTH 16.5 % (11.6-14.6); WHITE BLOOD COUNT 4.3 x1000/uL (4.5-11.0)
[2024-08-13 05:47] LABS: IRON 49 ug/dL (50-170)
[2024-08-13 05:51] LABS: TOTAL IRON BINDING CAPACITY 293 ug/dl (250-425)
[2024-08-13 08:00] VITALS: BP 129/69; PULSE 85; RESP 20; TEMP 36.50292; O2SAT 100
[2024-08-13] MEDS: FUROSEMIDE 40MG/4ML VIAL IVP SCH (10:30)
[2024-08-13 12:00] VITALS: BP 130/78; PULSE 86; RESP 20; TEMP 36.6696; O2SAT 98
[2024-08-13 16:00] VITALS: BP 116/57; PULSE 78; RESP 20; TEMP 36.6696; TEMP 36.66960; O2SAT 99
[2024-08-13 16:38] VITALS: BP 130/78; PULSE 86; TEMP 98; O2SAT 99
== END 2024-08-13 18:09 | disposition home or self-care (01) | DRG 291 ==
LOC: ER 17:17 → 7WST 21:00
PROVIDERS: ADMIT Internal Medicine; ATTEND Internal Medicine
DX: I13.2 Hypertensive heart and chronic kidney disease with heart failure and with stage 5 chronic kidney disease, or end stage renal disease (principal); I50.43 Acute on chronic combined systolic (congestive) and diastolic (congestive) heart failure; N18.6 End stage renal disease; Z68.41 Body mass index [BMI] 40.0-44.9, adult; I48.0 Paroxysmal atrial fibrillation; M54.50 Low back pain, unspecified; E66.01 Morbid (severe) obesity due to excess calories; I27.21 Secondary pulmonary arterial hypertension; I08.3 Combined rheumatic disorders of mitral, aortic and tricuspid valves; D50.9 Iron deficiency anemia, unspecified; E83.42 Hypomagnesemia; G89.29 Other chronic pain; I49.5 Sick sinus syndrome; Z90.49 Acquired absence of other specified parts of digestive tract; Z91.148 Patient's other noncompliance with medication regimen for other reason; Z85.41 Personal history of malignant neoplasm of cervix uteri; Z92.3 Personal history of irradiation; Z79.01 Long term (current) use of anticoagulants; Z79.899 Other long term (current) drug therapy; Z90.710 Acquired absence of both cervix and uterus; Z95.0 Presence of cardiac pacemaker
CPT/HCPCS: 36415; 71045; 80048; 81003; 83540; 83550; 83735; 83880; 84484; 85025; 93005; 93970; 99291; J1940; J3475

== ENCOUNTER 2025-01-26 20:36 | Inpatient (IN) | payer MEDICARE, MEDICAID ==
[~2025-01-26] VITALS: Ht 162.6 cm; Wt 126.1 kg
[~2025-01-26 20:36] MED LIST changes: -ALBU6.7H15 INH; +APIX5TAB PO; -CARV12.545 PO; +FURO40TA5 MT; -FURO80TA3 PO
[2025-01-26 22:17] LABS: CARBON DIOXIDE 19 mEq/L (21-32); CHLORIDE 105 mEq/L (98-107); POTASSIUM 5.4 mEq/L (3.5-5.1); SODIUM 136 mEq/L (136-145)
[2025-01-26 22:18] LABS: CALCIUM 7.6 mg/dL (8.7-10.4)
[2025-01-26 22:23] LABS: ETHANOL BLOOD < 10 mg/dL (<10); GLUCOSE 71 mg/dL (70-105); UREA NITROGEN BLOOD 57 mg/dL (9-23)
[2025-01-26 22:37] LABS: CREATININE 2.6 mg/dL (0.6-1.0)
[2025-01-26 22:39] LABS: TROPONIN I HIGH SENSITIVITY 126 ng/L (3.0-34)
[2025-01-26] MEDS: ACETAMINOPHEN 1000MG/100ML 100 ML IV ONE (23:12)
[2025-01-26] MEDS: ASPIRIN 325MG EC TABLET PO NR (23:12)
[2025-01-26 23:41] LABS: INR 1.4; PARTIAL THROMBOPLASTIN TIME 28.3 sec (23.4-31.0)
[2025-01-27] VITALS (77 sets, daily range): BP systolic 41–139; BP diastolic 18–87; PULSE 47–86; RESP 11–26; TEMP 36.6–37.2; O2SAT 81–100
[2025-01-27 00:01] LABS: HEMATOCRIT. 31.1 % (36.0-48.0); HEMOGLOBIN. 9.7 g/dL (12.0-16.0); MEAN CORPUSCULAR HEMOGLOBIN 27.3 pg (28.0-32.0); MEAN CORPUSCULAR HGB CONC 31.2 g/dL (31.0-37.0); MEAN CORPUSCULAR VOLUME 87.6 fL (81.0-99.0); MEAN PLATELET VOLUME 9.4 fl (7.4-10.4); PLATELET 116 x1000/uL (130-400); RED BLOOD CELL COUNT 3.55 mill/uL (4.2-5.4); RED CELL DISTRIBUTION WIDTH 17.3 % (11.6-14.6)
[2025-01-27 00:12] LABS: DIFFERENTIAL COMMENT 1
[2025-01-27 00:14] LABS: WHITE BLOOD COUNT 1.4 x1000/uL (4.5-11.0)
[2025-01-27] MEDS: SODIUM CHLORIDE 0.9% 500 ML IV ONE (01:10)
[2025-01-27] MEDS: PIPERACILLIN/TAZO 3.375G/50ML 50 ML IV NR (01:20)
[2025-01-27] MEDS ORDERED: NOREPINEPHRINE 8 MG in DEXT 5% WATER 242 ML IV PRN (02:00)
[2025-01-27] MEDS: VANCOMYCIN 1G PREMIX 200 ML IV SCH (02:13)
[2025-01-27] MEDS: NOREPINEPHRINE 8MG/250ML PMX 250 ML IV PRN ×2 (02:13→06:20)
[2025-01-27] MEDS ORDERED: CLONIDINE 0.1MG TABLET PO PRN (02:15)
[2025-01-27] MEDS ORDERED: ACETAMINOPHEN 325MG TABLET PO PRN ×2 (02:15)
[2025-01-27] MEDS ORDERED: MAGNESIUM/ALUMINUM HYDROXIDE/SIMETHICONE 30ML UDC PO PRN (02:15)
[2025-01-27] MEDS ORDERED: ONDANSETRON HCL 4MG/2ML INJ IV PRN (02:15)
[2025-01-27 02:30] LABS: LACTIC ACID 3.8 mmol/L (0.4-2.0)
[2025-01-27] MEDS ORDERED: ALBUTEROL (0.083%) 2.5MG/3ML NEB HHN NR (02:45)
[2025-01-27] MEDS: PANTOPRAZOLE SODIUM 40 MG/VIAL IV SCH (03:31)
[2025-01-27] MEDS: SODIUM ZIRCONIUM CYCLOSILICATE 10GM/PACKET PO NR (03:31)
[2025-01-27] MEDS: DEXT 5%/0.9% NACL 1,000 ML IV SCH (03:31)
[2025-01-27] MEDS: MORPHINE SULFATE 2 MG/ML INJ (NOT FOR IM USE) IV PRN (03:35)
[2025-01-27] MEDS ORDERED: VASOPRESSIN 20 UNIT in SODIUM CHLORIDE 0.9% 99 ML IV PRN (04:00)
[2025-01-27] MEDS: IPRATROPIUM/ALBUTEROL 0.5-3(2.5)MG/3ML NEB HHN PRN (04:55)
[2025-01-27] MEDS: CLINDAMYCIN 600MG PREMIX 50 ML IV SCH ×2 (05:25→13:12)
[2025-01-27 06:40] LABS: CREATINE KINASE 48 IU/L (34-145); PHOSPHORUS 4.4 mg/dL (2.5-4.9)
[2025-01-27 06:41] LABS: TROPONIN I HIGH SENSITIVITY 154 ng/L (3.0-34)
[2025-01-27 07:02] LABS: CARBON DIOXIDE 19 mEq/L (21-32); CHLORIDE 106 mEq/L (98-107); POTASSIUM 4.2 mEq/L (3.5-5.1); SODIUM 137 mEq/L (136-145)
[2025-01-27 07:03] LABS: CALCIUM 7.2 mg/dL (8.7-10.4)
[2025-01-27 07:04] LABS: HEMATOCRIT. 29.4 % (36.0-48.0); HEMOGLOBIN. 9.4 g/dL (12.0-16.0); MEAN CORPUSCULAR HEMOGLOBIN 27.5 pg (28.0-32.0); MEAN CORPUSCULAR HGB CONC 31.8 g/dL (31.0-37.0); MEAN CORPUSCULAR VOLUME 86.7 fL (81.0-99.0); MEAN PLATELET VOLUME 9.2 fl (7.4-10.4); PLATELET 132 x1000/uL (130-400); RED CELL DISTRIBUTION WIDTH 17.3 % (11.6-14.6)
[2025-01-27 07:07] LABS: CREATININE 2.9 mg/dL (0.6-1.0); IRON 107 ug/dL (50-170)
[2025-01-27 07:08] LABS: GLUCOSE 112 mg/dL (70-105); UREA NITROGEN BLOOD 69 mg/dL (9-23)
[2025-01-27 07:11] LABS: TOTAL IRON BINDING CAPACITY 342 ug/dl (250-425)
[2025-01-27 07:21] LABS: PLATELET ESTIMATE NORMAL
[2025-01-27 07:22] LABS: ANISOCYTOSIS 1+
[2025-01-27 07:25] LABS: DIFFERENTIAL COMMENT 1
[2025-01-27] MEDS ORDERED: LIDOCAINE HCL 1% 10 MG/ML 10ML VIAL ONE (07:48)
[2025-01-27] MEDS: PIPERACILLIN/TAZO 3.375G/50ML 50 ML IV SCH (08:30)
[2025-01-27] MEDS: MAGNESIUM 2 G PREMIX 50 ML IV NR (08:30)
[2025-01-27] MEDS: APIXABAN 5 MG TABLET PO SCH (08:30)
[2025-01-27] MEDS ORDERED: ENOXAPARIN 30MG/0.3ML SYR SUBCUT SCH (09:00)
[2025-01-27 11:47] LABS: PLATELET ESTIMATE NORMAL
[2025-01-27 11:48] LABS: ANISOCYTOSIS 1+; CREATINE KINASE 49 IU/L (34-145)
[2025-01-27 17:06] LABS: CREATINE KINASE 53 IU/L (34-145)
[2025-01-27 17:40] LABS: TROPONIN I HIGH SENSITIVITY 168 ng/L (3.0-34)
[2025-01-27] MEDS: NOREPINEPHRINE 32 MG in DEXT 5% WATER 218 ML IV PRN (19:22)
[2025-01-27] MEDS ORDERED: MORPHINE SULFATE 2 MG/ML INJ (NOT FOR IM USE) IV PRN (20:00)
[2025-01-27] MEDS ORDERED: NALOXONE HCL 0.4MG/ML VIAL IV PRN (20:00)
[2025-01-27] MEDS: PHENYLEPHRINE 50MG/250ML PMX 250 ML IV PRN (20:11)
[2025-01-27] MEDS ORDERED: EPINEPHRINE 0.1MG/ML (1:10,000) 10ML SYR IV NR (20:15)
[2025-01-27] MEDS: EPINEPHRINE 1:1000 1 MG/ML AMP INJ NR (20:26)
[2025-01-27] MEDS: DOPAMINE 800MG PREMIX (DOUBLE) 250 ML IV PRN (20:30)
[2025-01-27] MEDS: VASOPRESSIN 20 UNIT in SODIUM CHLORIDE 0.9% 99 ML IV PRN (21:20)
[2025-01-27 22:35] LABS: BG BASE EXCESS -27.7 mmol/L (-2.0-3.0); BG CARBOXYHEMOGLOBIN 0.8 % (0.5-1.5); BG DEOXYHEMOGLOBIN 0.3 % (0.0-5.0); BG FRACTION INSPIRED OXYGEN 100; BG HCO3 ACT 4.8 mmol/L (21.0-28.0); BG METHEMOGLOBIN 0.2 % (0.5-1.5); BG OXYGEN SATURATION 99.7 % (94.0-98.0); BG OXYHEMOGLOBIN 98.7 % (94.0-98.0); BG PCO2 28.1 mmHg (32.0-45.0); BG PH 6.848 (7.350-7.450); BG PO2 344.3 mmHg (83.0-108.0); BG SAMPLE SITE RIGHT RADIAL; BG TOTAL HEMOGLOBIN 10.3 g/dL (12.0-16.0); BG VENT MODE VENT - AC
[2025-01-27] MEDS ORDERED: SODIUM BICARBONATE 150 MEQ in SODIUM CHLORIDE 0.9% 850 ML IV SCH (22:45)
[2025-01-27] MEDS ORDERED: SODIUM BICARBONATE 150 MEQ in DEXT 5%/0.45% NACL 1000ML 850 ML IV SCH (22:51)
[2025-01-27] MEDS: SODIUM BICARBONATE 8.4% 50MEQ/50ML SYR IV NR (22:53)
[2025-01-27] MEDS: SODIUM BICARBONATE 150 MEQ in DEXT 5%/0.45% NACL 1000ML 850 ML IV SCH (23:36)
[2025-01-27] MEDS: EPINEPHRINE 10 MG in SODIUM CHLORIDE 0.9% 240 ML IV PRN (23:37)
[2025-01-28] VITALS (58 sets, daily range): BP systolic 34–107; BP diastolic 13–73; PULSE 0–79; RESP 0–32; TEMP 36.3–36.5; O2SAT 97
[2025-01-28 09:22] LABS: BG BASE EXCESS -31.1 mmol/L (-2.0-3.0); BG CARBOXYHEMOGLOBIN 1.3 % (0.5-1.5); BG DEOXYHEMOGLOBIN 0.3 % (0.0-5.0); BG FRACTION INSPIRED OXYGEN 80; BG HCO3 ACT 2.7 mmol/L (21.0-28.0); BG METHEMOGLOBIN 0.3 % (0.5-1.5); BG OXYGEN SATURATION 99.7 % (94.0-98.0); BG OXYHEMOGLOBIN 98.1 % (94.0-98.0); BG PCO2 21.5 mmHg (32.0-45.0); BG PH 6.714 (7.350-7.450); BG PO2 246.5 mmHg (83.0-108.0); BG SAMPLE SITE RIGHT RADIAL; BG TOTAL HEMOGLOBIN 7.4 g/dL (12.0-16.0); BG TOTAL RESPIRATORY RATE 18 b/min; BG VENT MODE VENT - AC
[2025-01-28] MEDS: HYDROCORTISONE SOD SUCCINATE 100 MG/2 ML VIAL IV SCH (09:47)
[2025-01-28] MEDS: SODIUM BICARBONATE 8.4% 50MEQ/50ML SYR IV SCH (10:05)
[2025-01-28 11:41] LABS: HEMATOCRIT. 22.9 % (36.0-48.0); MEAN CORPUSCULAR HEMOGLOBIN 27.7 pg (28.0-32.0); MEAN CORPUSCULAR HGB CONC 27.2 g/dL (31.0-37.0); MEAN CORPUSCULAR VOLUME 102.1 fL (81.0-99.0); MEAN PLATELET VOLUME 9.9 fl (7.4-10.4); RED BLOOD CELL COUNT 2.24 mill/uL (4.2-5.4)
[2025-01-28] MEDS: EPINEPHRINE 20 MG in SODIUM CHLORIDE 0.9% 480 ML IV PRN (12:04)
[2025-01-28 12:13] LABS: DIFFERENTIAL COMMENT 1
[2025-01-28 12:15] LABS: HEMOGLOBIN. 6.2 g/dL (12.0-16.0); PLATELET 46 x1000/uL (130-400)
[2025-01-28] MEDS: MORPHINE SULFATE 100 MG in DEXT 5% WATER 90 ML IV PRN (12:51)
[2025-01-28 13:12] LABS: NUCLEATED RED BLOOD CELLS 1 /100 WBC
[2025-01-28 13:13] LABS: ANISOCYTOSIS 1+; PLATELET ESTIMATE MARKEDLY DECREASED
== END 2025-01-28 14:23 | DRG 871 ==
LOC: ER 20:36 → EDBEDREQ 21:50 → CVICU 01-27 00:52 → EDBEDREQSVC 01-27 00:58 → EDBEDREQ 01-27 00:58 → ENRESERV 01-27 01:50
PROVIDERS: ADMIT Internal Medicine; ATTEND Internal Medicine
PROC: 0BH17EZ Insertion of Endotracheal Airway into Trachea, Via Natural or Artificial Opening (ICD-10-PCS; principal; 2025-01-27)
PROC: 5A1935Z Respiratory Ventilation, Less than 24 Consecutive Hours (ICD-10-PCS; 2025-01-27)
PROC: 02HV33Z Insertion of Infusion Device into Superior Vena Cava, Percutaneous Approach (ICD-10-PCS; 2025-01-27)
PROC: B548ZZA Ultrasonography of Superior Vena Cava, Guidance (ICD-10-PCS; 2025-01-27)
PROC: 03HY32Z Insertion of Monitoring Device into Upper Artery, Percutaneous Approach (ICD-10-PCS; 2025-01-28)
PROC: 5A12012 Performance of Cardiac Output, Single, Manual (ICD-10-PCS; 2025-01-28)
DX: A41.81 Sepsis due to Enterococcus (principal); D61.810 Antineoplastic chemotherapy induced pancytopenia; G93.41 Metabolic encephalopathy; R65.21 Severe sepsis with septic shock; N17.0 Acute kidney failure with tubular necrosis; I21.A1 Myocardial infarction type 2; J96.00 Acute respiratory failure, unspecified whether with hypoxia or hypercapnia; L03.116 Cellulitis of left lower limb; I50.42 Chronic combined systolic (congestive) and diastolic (congestive) heart failure; I13.0 Hypertensive heart and chronic kidney disease with heart failure and stage 1 through stage 4 chronic kidney disease, or unspecified chronic kidney disease; E87.20 Acidosis, unspecified; N13.6 Pyonephrosis; Z68.42 Body mass index [BMI] 45.0-49.9, adult; B96.89 Other specified bacterial agents as the cause of diseases classified elsewhere; D70.9 Neutropenia, unspecified; E66.813 Obesity, class 3; E11.22 Type 2 diabetes mellitus with diabetic chronic kidney disease; E83.42 Hypomagnesemia; E87.5 Hyperkalemia; E83.51 Hypocalcemia; I27.20 Pulmonary hypertension, unspecified; I48.0 Paroxysmal atrial fibrillation; N18.9 Chronic kidney disease, unspecified; D50.9 Iron deficiency anemia, unspecified; E78.5 Hyperlipidemia, unspecified; Z51.5 Encounter for palliative care; Z66 Do not resuscitate; Z79.01 Long term (current) use of anticoagulants; Z85.41 Personal history of malignant neoplasm of cervix uteri; Z85.43 Personal history of malignant neoplasm of ovary; Z90.710 Acquired absence of both cervix and uterus; Z92.21 Personal history of antineoplastic chemotherapy; Z92.3 Personal history of irradiation; Z95.0 Presence of cardiac pacemaker; R59.1 Generalized enlarged lymph nodes; T45.1X5A Adverse effect of antineoplastic and immunosuppressive drugs, initial encounter; Y92.89 Other specified places as the place of occurrence of the external cause; E11.51 Type 2 diabetes mellitus with diabetic peripheral angiopathy without gangrene; R57.0 Cardiogenic shock
CPT/HCPCS: 31500; 36415; 36573; 36600; 71045; 73552; 73700; 76770; 80048; 80320; 82375; 82550; 82728; 82805; 82962; 83036; 83540; 83550; 83605; 83735; 83880; 84100; 84145; 84484; 85025; 87070; 87077; 87186; 93005; 93306; 93970; 94002; 94003; 94070; 94640; 94664; 99291; A4606; C1725; C1769; J1265; J1720; J2003; J2270; J2371; J2470; J2543; J3370; J3475; J3490; J7040; J7042; J7050; J7060; G0480; J0131